=== PATIENT | female | born 1960 | race Caucasian/White ===

== ENCOUNTER 2016-11-25 12:02 | Inpatient (IN) | payer BC ==
[~2016-11-25] VITALS: Ht 167.6 cm; Wt 87.1 kg
--- NOTE | ~2016-11-25 | CR72 ---
[facility] A Service of [facility] & [facility] RADIOLOGY TEXT RESULTS PATIENT: ABDIRAHMAN OLVERA LOCATION: [facility] 461-01 : 62 UNIT #: [id number] AGE: [address]: Raúl Horn MD SEX: F ORDER DR: [id number] [facility] [address] [place], [place] [address] [id number] I MR#: [id number] #: [id number] NAME: ABDIRAHMAN OLVERA : 1960 SEX: F STUDY DATE/TIME: 11/25/2016 1244 UNIT: [facility] ROOM: [facility] STUDY DESCRIPTION: CR Chest Single View Portable Attending Physician: Aida Cruz M.D. Ordering Physician: Matti Basurto M.D. Primary Care Physician: John Chamorro M.D. MEDICAL IMAGING REPORT This report is preliminary unless electronic signature is present EXAM Chest 11/25/2016 1244 hours HISTORY 56-year-old woman with fever, cough, nausea, vomiting and shortness of air with facial swelling this morning. History of diabetes and hypertension. COMPARISON 09/24/2009 FINDINGS Portable upright chest demonstrates normal cardiac, mediastinal and hilar contours. The lungs are clear and there are no effusions. No free air seen in the abdomen. IMPRESSION No acute cardiopulmonary changes. No significant change from 09/24/2009. No free air seen in the abdomen. Dictated by... Gisela St M.D. THIS IS AN ELECTRONICALLY VERIFIED REPORT Gisela St M.D. at 11/26/2016 8:53 AM Aashish TD: 11/25/2016 18:36 JOB #: [id number] MEDICAL IMAGING REPORT Page 1 of 1 COPY
--- NOTE | ~2016-11-25 | CT101 ---
[facility] A Service of [facility] RADIOLOGY TEXT RESULTS PATIENT: ABDIRAHMAN OLVERA LOCATION: [facility] 46-01 : 62 UNIT #: [id number] AGE: [address]: Raúl Horn MD SEX: F ORDER DR: [id number] [facility] [address] [place], [place] [address] [id number] I MR#: [id number] Acc #: [id number] NAME: ABDIRAHMAN OLVERA : 1960 SEX: F STUDY DATE/TIME: 11/25/2016 12:57 UNIT: [facility] ROOM: [facility] STUDY DESCRIPTION: CT Maxillofacial Area Wo Cont Attending Physician: Aida Cruz M.D. Ordering Physician: Matti Basurto M.D. Primary Care Physician: John Chamorro M.D. MEDICAL IMAGING REPORT This report is preliminary unless electronic signature is present EXAM CT maxillofacial bones HISTORY Nausea, vomiting, bilateral ear pain since last night. Left side worse. Left facial redness and loss of hearing in left ear. No trauma. TECHNIQUE Thin section axial images performed through the maxillofacial bones without contrast. Multiplanar reconstructed images reviewed at a workstation. This CT exam was performed with one or more of the following radiation dose reduction techniques: automatic exposure control, adjustment of mA and/or kV according to patient size, and iterative reconstruction. FINDINGS Examination demonstrates a trace amount mucosal thickening of fluid in the dependent portion of the left sphenoid sinus and a small retention cyst left maxillary sinus. Frontal, ethmoid right maxillary sinuses appear normal. Mastoids appear normal. Middle ear cavities appear normal. The skull base and visualized facial and orbital soft tissues unremarkable. IMPRESSION Minimal fluid or mucosal thickening in the dependent portion of the left sphenoid sinus or posterior ethmoid sinus, as well as a small left maxillary sinus mucous retention cyst. Otherwise, unremarkable exam. Dictated by.Tone Zhou M.D. [facility] A Service of [facility] RADIOLOGY TEXT RESULTS PATIENT: ABDIRAHMAN OLVERA LOCATION: [place] [address] : [birth year] UNIT #: [id number] AGE: [address]: Raúl Horn MD SEX: F ORDER DR: THIS IS AN ELECTRONICALLY VERIFIED REPORT Amos Zhou M.D. at 11/27/2016 5:11 PM TISHA/kelly TD: 11/25/2016 19:30 JOB #: [id number] MEDICAL IMAGING REPORT Page 1 of 1 COPY
--- NOTE | ~2016-11-25 | HP ---
Unit #: [id number] #: [id number] Patient: ABDIRAHMAN OLVERA [id number] [address] [address] [id number] I MR#: [id number] NAME: ABDIRAHMAN OLVERA. ROOM: 461 Age: 56 Sex: F Admission Date: 11/25/2016 : 1960 Attending Physician: Aida Cruz M.D. Primary Care Physician: John Chamorro M.D. HISTORY AND PHYSICAL CHIEF COMPLAINT Nausea, vomiting, and headache. HISTORY OF PRESENT ILLNESS The patient is a 56-year-old female with a past medical history of hypertension, prediabetes, and hypothyroidism, who presented to the emergency department for evaluation of the above. The patient states that she was in her usual state of health until November 21, 2016, when the patient started having "sinus drainage." Yesterday, she noticed that her ears were somewhat swollen. This morning, she awoke with left ear pain and swelling involving the left ear and preauricular area. Of note, the patient has had drainage from the right ear for about the past six months. She saw her primary care physician and was placed on Singulair. In the emergency department, initial temperature was 101.5, pulse 107, and blood pressure 198/110. A CT maxillofacial study was done and showed minimal fluid in the left sphenoid sinus. Chest x-ray showed nothing acute. Lactic acid is 1.5. White blood cell count is 13.2. She was given clindamycin in the emergency department, as well as 30 mL/kg of normal saline, 4 mg of Zofran, and a gram of Tylenol. She is being admitted to [facility] for evaluation and further treatment. PAST MEDICAL HISTORY 1. Hospitalized about 20 years ago at [facility] for hysterectomy. 2. Hypertension. 3. "Prediabetes." 4. Hypothyroidism. 5. Depression. PAST SURGICAL HISTORY 1. Tonsillectomy. 2. Hysterectomy. SOCIAL HISTORY The patient lives with her . She works at [employer]. There is no tobacco or alcohol use. FAMILY HISTORY Notable for her mother having colon cancer. Her dad had a myocardial infarction. Unit #: [id number] #: [id number] Patient: ABDIRAHMAN OLVERA ALLERGIES Penicillin. HOME MEDICATIONS 1. Synthroid 50 mcg daily. 2. Zestril 10 mg daily. 3. Metoprolol 50 mg daily. 4. Singulair 10 mg daily. 5. Zoloft 50 mg daily. REVIEW OF SYSTEMS A complete review of systems is negative except as indicated in the History of Present Illness. The patient states that she has not seen an Ear/Nose/Throat doctor regarding the otorrhea. She has not been on antibiotics. The patient states that she did have burning with urination yesterday. She also reports three bouts of emesis and one bout of diarrhea within the past 24 hours. PHYSICAL EXAMINATION VITAL SIGNS: Temperature is 101.5, pulse 107, respirations 15, blood pressure 198/119, most recently 144/77, and oxygen saturation 96% on room air. GENERAL: Patient is a very pleasant female who is awake, alert, and in no acute distress. HEENT: Head is atraumatic. The left aspect of the face is erythematous, edematous, warm, and tender to palpation in the left preauricular area and including the left ear. The visualization of the tympanic membrane is somewhat limited due to erythema. The right ear demonstrates edema that somewhat limits visualization of the tympanic membrane. The patient does have dried material within the canal on the right. Mucous membranes are moist. NECK: Supple. Trachea is midline. CARDIOVASCULAR: Regular rate and rhythm. LUNGS: Clear to auscultation bilaterally with no increased work of breathing. ABDOMEN: Soft and nontender with bowel sounds present in all four quadrants. EXTREMITIES: Nontender with no pedal edema. NEUROLOGIC: Patient is awake and alert. She follows commands. PSYCHIATRIC: Mood and affect are normal. Patient is cooperative. SKIN: Skin of examined areas is warm and dry. DIAGNOSTIC STUDIES LABORATORY: Complete blood count notable for white blood cell count of 13.2. INR is 1. Troponin is less than 0.05. Lactic acid is 1.5. Comprehensive metabolic panel notable for a glucose of 190 and alkaline phosphatase 114. Lipase is 17. IMAGING: Chest x-ray shows nothing acute. CT maxillofacial shows minimal fluid in the left sphenoid sinus. CARDIOLOGY: EKG shows sinus tachycardia with a rate of 106 beats per minute. ASSESSMENT The patient is a 56-year-old female with: 1. Facial cellulitis. The patient received clindamycin in the emergency department. Unit #: [id number] #: [id number] Patient: ABDIRAHMAN OLVERA 2. Sepsis with an initial lactic acid of 1.5. The patient received 30 mL/kg of normal saline in the emergency department. 3. Hypertension. 4. Prediabetes. The patient does not routinely check blood sugars at home. She is not on any medication. 5. Hypothyroidism, maintained on levothyroxine. 6. Chronic otorrhea. PLAN 1. Admit to intermediate level. 2. Advance diet to healthy heart/consistent carbohydrate as tolerated. 3. Normal saline at 125 mL/hour. 4. Blood cultures x2. 5. Clindamycin 600 mg IV q.8 hours. 6. Sepsis protocol with repeat lactic acid. 7. P.r.n. Tylenol. 8. P.r.n. Zofran. 9. Serial cardiac enzymes. 10. Check TSH. 11. Hemoglobin A1c. 12. Low-dose sliding scale insulin with Accu-Cheks. 13. Urinalysis with culture and sensitivity. 14. Repeat labs in the morning. 15. SCDs for DVT prophylaxis. 16. Additional workup and consultants based on above. 1. Dictated by Dyllan Bullock/lynette TD: 11/25/2016 18:56 JOB #: [id number] HISTORY AND PHYSICAL Page 1 of 1 X Aida Cruz MD X HISTORY AND PHYSICAL
--- NOTE | ~2016-11-25 | EKG ---
PATIENT: ABDIRAHMAN OLVERA UNIT #: [id number] Ventricular Rate: 105 BPM Atrial Rate: 105 BPM P-R Interval: 140 ms QRS Duration: 78 ms Q-T Interval: 330 ms QTC Calculation(Bezet): 436 ms P [place]: 62 degrees Calculated R [place]: 70 degrees Calculated T [place]: 36 degrees Diagnosis Line: Sinus tachycardia Diagnosis Line: Otherwise normal ECG Diagnosis Line: No previous ECGs available Diagnosis Line: Confirmed by YAMINI FIERRO MD ([id number]) on Diagnosis Line: 11/26/2016 7:32:49 AM INTERPRETING MD: VADIM YANG
--- NOTE | ~2016-11-25 | DS ---
Unit #: [id number] #: [id number] Patient: ABDIRAHMAN OLVERA [id number] [address] [address] [id number] I MR#: [id number] NAME: ABDIRAHMAN OLVERA ROOM: 46 Age: 56 Sex: F Admission Date: 11/25/2016 : 1960 Discharge Date: 11/28/2016 Attending Physician: Raúl Horn M.D. Primary Care Physician: John Chamorro M.D. DISCHARGE SUMMARY PRINCIPAL DIAGNOSES ON DISCHARGE 1. Sepsis secondary to erysipelas on the left side of the face. 2. Newly diagnosed hypertension. SECONDARY DIAGNOSES 1. Hypothyroidism. 2. Hypertension. 3. Depression. MEDICATIONS UPON DISCHARGE 1. Sertraline 50 mg p.o. daily. 2. Metoprolol 50 mg p.o. daily. 3. Lisinopril 10 mg daily. 4. Montelukast 10 mg daily. 5. Levothyroxine 50 mcg p.o. daily. New medications: 6. Keflex 500 mg p.o. q.8 hours for seven more days. 7. Metformin 500 mg p.o. b.i.d. HISTORY OF PRESENT ILLNESS/BRIEF HOSPITAL COURSE Ms. Olvera is a 56-year-old lady with a history of hypertension, prediabetes and hypothyroidism that presented to the emergency room because of headache, nausea and vomiting. She also noted some drainage from the right eye for about the previous six months chronically for which she was placed on Singulair. She was noted to have a temperature of 101.5 in the emergency room. She was tachycardic at 107. Blood pressure was elevated at 198/110. On exam, she had some erythema and edema and warmth on the left aspect of the face extending over old malar area to the left ear. A CT scan of the maxillofacial area was obtained and showed minimal fluid or mucosal thickness in the dependent portion of the left sphenoid sinus and the posterior ethmoid sinus and the maxillary sinus mucus retention cyst on the left. Otherwise, it was unremarkable. The patient was admitted to the hospital and started on IV antibiotics, initially with clindamycin. However, this was changed to cefazolin given the typical characteristics of erysipelas and being infection-like related to streptococcus. The patient had a significant improvement on her symptoms. Her fever subsided rapidly as well as her nausea, vomiting and headaches. Today, the patient's temperature is 98.1, heart rate 76, blood pressure 140/68. She feels much better and is considered to be ready for discharge. On admission, she was also noted to have an elevated glucose and a hemoglobin A1c was noted to be 7.7. The patient was kept on insulin sliding scale and is being started on metformin now on discharge. Her glycemia during the hospitalization ranged between 130 and 171. Unit #: [id number] #: [id number] Patient: ABDIRAHMAN OLVERA CONDITION Improved. DISPOSITION The patient is being discharged home. FOLLOWUP APPOINTMENTS The patient is to follow up with her primary care physician within one week. Dictated by... Dyllan Arguello/senthil TD: 11/29/2016 09:14 JOB #: [id number] DISCHARGE SUMMARY Page 1 of 1 X X DISCHARGE SUMMARY
[2016-11-25 12:35] LABS: BASOPHIL# 0.1 X10e3 (0-0.3); BASOPHIL% 0.4 % (0-2.5); EOSINOPHIL# 0.1 X10e3 (0-0.7); EOSINOPHIL% 0.7 % (0.0-7.0); HEMATOCRIT 43.6 % (35.0-45.0); HEMOGLOBIN 14.8 gm/dL (12.0-16.0); LYMPHOCYTE# 1.3 X10e3 (1.0-3.5); LYMPHOCYTE% 9.7 % (17.0-45.0); MEAN CORPUSCULAR HEMOGLOBIN 28.5 PG (28-34); MEAN CORPUSCULAR HGB CONC 33.9 g/dL (30-36); MEAN PLATELET VOLUME 7.8 FL (6.5-11.5); MONOCYTE# 0.6 X10e3 (0-1.0); MONOCYTE% 4.4 % (3.0-12.0); NEUTROPHIL# 11.2 X10e3 (1.5-7.1); NEUTROPHIL% 84.8 % (40-75); PLATELET COUNT 223 X10e3 (140-420); RED BLOOD COUNT 5.19 X10e (3.90-5.30); RED CELL DISTRIBUTION WIDTH 13.6 % (11.0-15.5); WHITE BLOOD COUNT 13.2 X10e3 (4.0-10.5)
[2016-11-25 12:36] LABS: DIFF IND NO
[2016-11-25 12:52] LABS: PARTIAL THROMBOPLASTIN TIME 28.1 SECONDS (23.5-31.3); PROTHROMBIN TIME (PATIENT) 11.1 SECONDS (10.0-11.7)
[2016-11-25 12:53] LABS: POC - CKMB <1.0 ng/mL (0.0-7.9); POC - TROPONIN <0.05 ng/mL (<=0.05)
[2016-11-25 13:04] LABS: ALBUMIN SERUM 4.3 g/dL (3.5-5.0); BILIRUBIN, DIRECT 0.1 mg/dL (0.0-0.2); BILIRUBIN,INDIRECT 1.1 mg/dL (0.0-0.9); BILIRUBIN,TOTAL 1.2 mg/dL (0.2-2.0); BUN/CREATININE RATIO 13.75; CALCIUM SERUM 9.2 mg/dL (8.4-10.2); CREATININE SERUM 0.8 mg/dL (0.6-1.4); GLOM FILT RATE Estimated 83.1 mL/min (>60); POTASSIUM 3.8 mmol/L (3.5-5.1); PROTEIN TOTAL SERUM 8.1 g/dL (6.0-8.3)
[2016-11-25] MEDS ORDERED: PATIENT'S PHARMACY (14:12)
[2016-11-25] MEDS ORDERED: ZOLOFT50 MG PO (14:13)
[2016-11-25] MEDS ORDERED: SINGULAIR PO (14:13)
[2016-11-25] MEDS ORDERED: SYNTHROID PO (14:13)
[2016-11-25] MEDS ORDERED: METOPROLOL SUCC50 MG PO (14:13)
[2016-11-25] MEDS ORDERED: LISINOPRIL PO (14:13)
[2016-11-25 19:31] LABS: CK TOTAL 33 IU/L (26-140)
[2016-11-25 19:35] LABS: URINE SOURCE CLEAN CATCH
[2016-11-25 19:45] LABS: URINE APPEARANCE CLEAR; URINE BILIRUBIN NEG (NEG); URINE BLOOD NEG (NEG); URINE COLOR YELLOW; URINE GLUCOSE 100 MG/DL (NEG); URINE KETONE TRACE (NEG); URINE LEUKOCYTE ESTERASE NEG (NEG); URINE NITRATE NEG (NEG); URINE PROTEIN NEG (NEG); URINE SPECIFIC GRAVITY 1.025 (1.003-1.035); URINE UROBILINOGEN 0.2 MG/DL (NEG)
[2016-11-26 03:31] LABS: HEMOGLOBIN 12.9 gm/dL (12.0-16.0); MEAN CELL VOLUME 85.6 FL (83-96); MEAN CORPUSCULAR HEMOGLOBIN 28.3 PG (28-34); MEAN PLATELET VOLUME 8.2 FL (6.5-11.5); RED BLOOD COUNT 4.56 X10e (3.90-5.30); RED CELL DISTRIBUTION WIDTH 13.6 % (11.0-15.5); WHITE BLOOD COUNT 12.8 X10e3 (4.0-10.5)
[2016-11-26 03:48] LABS: CK TOTAL 35 IU/L (26-140)
[2016-11-26 05:08] LABS: ALBUMIN SERUM 3.4 g/dL (3.5-5.0); BILIRUBIN,TOTAL 0.7 mg/dL (0.2-2.0); BUN/CREATININE RATIO 12.85; CALCIUM SERUM 7.9 mg/dL (8.4-10.2); CREATININE SERUM 0.7 mg/dL (0.6-1.4); GLOM FILT RATE Estimated 97.5 mL/min (>60); POTASSIUM 3.4 mmol/L (3.5-5.1); PROTEIN TOTAL SERUM 6.3 g/dL (6.0-8.3)
[2016-11-27 04:06] LABS: HEMATOCRIT 34.8 % (35.0-45.0); MEAN CELL VOLUME 84.4 FL (83-96); MEAN CORPUSCULAR HEMOGLOBIN 29.1 PG (28-34); MEAN CORPUSCULAR HGB CONC 34.4 g/dL (30-36); MEAN PLATELET VOLUME 7.9 FL (6.5-11.5); RED BLOOD COUNT 4.12 X10e (3.90-5.30); RED CELL DISTRIBUTION WIDTH 13.7 % (11.0-15.5); WHITE BLOOD COUNT 10.4 X10e3 (4.0-10.5)
[2016-11-27 04:35] LABS: BUN/CREATININE RATIO 11.42; CREATININE SERUM 0.7 mg/dL (0.6-1.4); GLOM FILT RATE Estimated 97.5 mL/min (>60); MAGNESIUM 2.2 mg/dL (1.6-3.0); POTASSIUM 3.8 mmol/L (3.5-5.1)
[2016-11-28 03:17] LABS: BASOPHIL% 0.3 % (0-2.5); EOSINOPHIL# 0.3 X10e3 (0-0.7); HEMATOCRIT 36.4 % (35.0-45.0); HEMOGLOBIN 12.2 gm/dL (12.0-16.0); LYMPHOCYTE# 2.6 X10e3 (1.0-3.5); LYMPHOCYTE% 30.8 % (17.0-45.0); MEAN CELL VOLUME 83.8 FL (83-96); MEAN CORPUSCULAR HEMOGLOBIN 28.1 PG (28-34); MEAN CORPUSCULAR HGB CONC 33.5 g/dL (30-36); MONOCYTE# 0.6 X10e3 (0-1.0); NEUTROPHIL% 58.9 % (40-75); PLATELET COUNT 173 X10e3 (140-420); RED BLOOD COUNT 4.34 X10e (3.90-5.30); RED CELL DISTRIBUTION WIDTH 13.8 % (11.0-15.5); WHITE BLOOD COUNT 8.5 X10e3 (4.0-10.5)
[2016-11-28 03:20] LABS: DIFF IND NO
[2016-11-28 03:37] LABS: BUN/CREATININE RATIO 12.5; CALCIUM SERUM 8.6 mg/dL (8.4-10.2); CREATININE SERUM 0.8 mg/dL (0.6-1.4); GLOM FILT RATE Estimated 83.1 mL/min (>60); POTASSIUM 3.9 mmol/L (3.5-5.1)
[2016-11-28] MEDS ORDERED: ACETAMINOPHEN650 M3 PO (13:00)
[2016-11-28] MEDS ORDERED: KEFLEX500 M1 PO (13:01)
[2016-11-28] MEDS ORDERED: GLUCOPHAGE500 MG PO (13:02)
== END 2016-11-28 14:00 | disposition home or self-care (01) | DRG 872 ==
LOC: CED 12:02 → CEDOF 14:50 → CED 15:56 → CEDOF 15:56 → C4C 18:25 → CEDOF 18:25 → C4C 18:25
PROVIDERS: Emergency Medicine; Family Medicine; Internal Medicine
DX: A41.9 Sepsis, unspecified organism (principal); H92.11 Otorrhea, right ear; I10 Essential (primary) hypertension; A46 Erysipelas; E03.9 Hypothyroidism, unspecified; F32.9 Major depressive disorder, single episode, unspecified; R73.03 Prediabetes; Z90.710 Acquired absence of both cervix and uterus; Z80.0 Family history of malignant neoplasm of digestive organs; Z88.0 Allergy status to penicillin
CPT/HCPCS: 70486; 71010; 80048; 80053; 80076; 81003; 82550; 82553; 82947; 83036; 83605; 83690; 83735; 84443; 84484; 85025; 85027; 85610; 85730; 87040; 87086; 93005; 96365; 96375; 99291; J0690; J1815; J2405; J3475